=== PATIENT | male | born 1965 | race Caucasian/White ===

== ENCOUNTER 2017-03-02 12:52 | Emergency (ER) | payer SELFPAY ==
[2017-03-02 13:49] VITALS: BP 140/92
[2017-03-02] MEDS ORDERED: BOOSTRIX IM ONE (14:48)
--- NOTE | 2017-03-02 15:21 | Emergency Department Report ---
ED Extremity Problem HPI - General Chief complaint: Wound/Laceration Stated complaint: RT ARM POSS INFECTION Time Seen by Provider: 03/02/17 14:40 Source: patient Mode of arrival: Ambulatory Limitations: No Limitations - History of Present Illness Initial comments: PT states last week, he was at work, working on a ceiling and his step ladder slipped. PT fell and scrapped R FA. PT states he thinks his elbow is getting infected, + swelling, + tenderness to site of scrape MD Complaint: extremity pain, extremity swelling -: Gradual Location: right, upper extremity, elbow History of Same: No Severity scale (0 -10): 0 Quality: other (tender to palpation ) Worsens with: palpation Associated Symptoms: denies other symptoms. denies: fever - Related Data Previous Rx's Medication Instructions Recorded Last Taken Type Cephalexin [Keflex] 500 mg PO Q6HR #40 capsule 03/02/17 Unknown Rx Sulfamethoxazole/Trimethoprim 1 each PO BID #20 tablet 03/02/17 Unknown Rx [Bactrim DS TAB] Allergies Allergy/AdvReac Type Severity Reaction Status Date / Time No Known Allergies Allergy Unverified 03/02/17 13:39 ED Review of Systems ROS: Stated complaint: RT ARM POSS INFECTION Other details as noted in HPI Comment: All other systems reviewed and negative Constitutional: denies: fever, malaise Gastrointestinal: denies: vomiting Musculoskeletal: as per HPI, joint swelling Skin: change in color, other (wound - abrasion to R fa and R elbow ) ED Past Medical Hx - Past Medical History Hx Diabetes: Yes - Surgical History 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 Absent: conjunctival injection - ENT ENT exam: Present: normal exam, normal external ear exam - Neck Neck exam: Present: normal inspection. Absent: tenderness - Respiratory Respiratory exam: Present: normal lung sounds bilaterally. Absent: respiratory distress - Cardiovascular Cardiovascular Exam: Present: regular rate, normal rhythm - Extremities Exam Extremities exam: Present: full ROM, tenderness, normal capillary refill - Expanded Upper Extremity Exam Right Shoulder Exam: Present: normal inspection. Absent: tenderness, swelling Elbow exam: Present: full ROM, tenderness, swelling, abrasion. Absent: erythema , effusion Forearm Wrist exam: Present: abrasion. Absent: tenderness, swelling Hand Wrist exam: Present: normal inspection, full ROM. Absent: tenderness - Back Exam Back exam: Present: normal inspection, full ROM. Absent: tenderness - Neurological Exam Neurological exam: Present: alert, oriented X3, normal gait - Psychiatric Psychiatric exam: Present: normal affect, normal mood - Skin Skin exam: Present: warm, dry, intact, abrasion ED Course Vital Signs 03/02/17 13:46 Temperature 98.5 F Pulse Rate 96 H Respiratory 17 Rate Blood Pressure 140/92 O2 Sat by Pulse 100 Oximetry - Reevaluation(s) Reevaluation #1: 03/02/17 16:14 PT aware no bony injury noted on XR. PT aware soft tissue of R elbow shows signs of infection and RX for antibiotics will be given. PT aware if worsening , he will need to return to ED. PT has no questions at this time. - Pulse Oximetry Interpretation Digit-Finger Initial Pulse Oximetry Readin ED Medical Decision Making - Radiology Data Radiology results: report reviewed R FA- NaP - Differential Diagnosis cellulitis, abscess, fb, fracture Critical Care Time: No Critical care attestation.: If time is entered above; I have spent that time in minutes in the direct care of this critically ill patient, excluding procedure time. ED Disposition Clinical Impression: Cellulitis of right elbow, Need for Tdap vaccination Abrasion of right forearm Qualifiers: Encounter type: initial encounter Qualified Code(s): S50.811A - Abrasion of right forearm, initial encounter Fall Qualifiers: Encounter type: initial encounter Qualified Code(s): W19.XXXA - Unspecified fall, initial encounter Disposition: DISCHARGED TO HOME OR SELFCARE Is pt being admited?: No Does the pt Need Aspirin: No Condition: Stable Instructions: Cellulitis (ED) Additional Instructions: Warm compresses 4 times a day Return to ED if worsening or concerns recheck bp on follow up Prescriptions: Cephalexin [Keflex] 500 mg PO Q6HR #40 capsule Sulfamethoxazole/Trimethoprim [Bactrim DS TAB] 1 each PO BID #20 tablet Referrals: [facility] [Outside] - 3-5 Days [facility] [Outside] - 3-5 Days GRACE SY MD, PHD [Staff Physician] - 3-5 Days [facility], [Primary Care Provider] - 3-5 Days Forms: Work/School Release Form(ED) Time of Disposition: 16:22
--- NOTE | 2017-03-02 15:44 | XRay Report ---
RIGHT FOREARM: Trauma, pain. AP and lateral views of the forearm demonstrate normal mineralization and contours for this patient's age. No destructive changes are noted and the adjacent soft tissues are normal. IMPRESSION: Normal right forearm.
== END 2017-03-02 16:43 | disposition home or self-care (01) ==
LOC: ED 12:52
DX: S50.811A Abrasion of right forearm, initial encounter (principal); L03.113 Cellulitis of right upper limb; E11.9 Type 2 diabetes mellitus without complications; W11.XXXA Fall on and from ladder, initial encounter; Y93.89 Activity, other specified; Y99.8 Other external cause status; Y92.89 Other specified places as the place of occurrence of the external cause
CPT/HCPCS: 82962; 90471; 90715